=== PATIENT | female | born 1950 | race Caucasian/White ===

== ENCOUNTER 2023-12-14 10:12 | Day surgery (SDC) | payer OTHER, SELFPAY ==
[2023-12-14] VITALS (15 sets, daily range): BP systolic 86–143; BP diastolic 42–75; BMI 30.9
--- NOTE | 2023-12-14 12:28 | ITS.CL.CATH ---
Mental Health Nurse Practitioner - Catheterization
Cardiac Catheterization
Procedure Report:
CARDIAC CATHETERIZATION REPORT
Date of Procedure: 12/14/2023
Referring: Willie Prado MD
Indication: Chest pain, abnormal ECG
HEMODYNAMIC DATA
AO: 132/88
LV: 132/15
LEFT VENTRICULOGRAPHY: Normal left ventricular wall motion with EF 67%
CORONARY ANGIOGRAPHY
Dominance: Right
Left Main: Normal
LAD: Normal. 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
Circumflex: Normal
RCA: Normal dominant vessel
Closure Device: None-the procedure was performed via the right radial artery. The Elvin's test was normal prior to the procedure.
Radiation (mGy): 145
DAP (cm2.Gy): 15.0
Fluoroscopy time: 3.4 minutes
CONCLUSIONS
1: Normal left-ventricular function with EF 67%
2: No significant CAD
Copy to: Willie Prado MD, Alvaro Joy MD
Migel Quiroz MD, [facility]
--- NOTE | 2023-12-14 15:24 | PTCARENOTE ---
Patient discharged via wheelchair, no complaints of pain. Patient and RN reviewed Discharge instructions with questions answered.
== END 2023-12-14 15:25 | disposition home or self-care (01) ==
LOC: CATH 10:12
PROVIDERS: ATTENDING PHYSICIAN Internal Medicine Cardiovascular Disease; FAMILY PHYSICIAN Internal Medicine; OTHER PHYSICIAN Internal Medicine Cardiovascular Disease
DX: R07.9 Chest pain, unspecified (principal); R94.31 Abnormal electrocardiogram [ECG] [EKG]; I35.1 Nonrheumatic aortic (valve) insufficiency; I10 Essential (primary) hypertension; E78.5 Hyperlipidemia, unspecified; Z82.49 Family history of ischemic heart disease and other diseases of the circulatory system; Z79.82 Long term (current) use of aspirin
CPT/HCPCS: 93458; C1894; Q9967